=== PATIENT | male | born 1985 | race Two or more races ===

== ENCOUNTER 2016-12-26 11:33 | Emergency (ER) | payer OTHER ==
[2016-12-26] MEDS ORDERED: NS 1,000 ML IV ONE (11:38)
[2016-12-26 11:46] VITALS: RESP 16; TEMP 98.1
[2016-12-26 11:57] LABS: ABSOLUTE IMMATURE GRANULOCYTES 0.08 10^3/uL (0.00-0.10); ADD DIFF? NO; ADD MORPH? NO; ADD SCAN? NO; ATYPICAL LYMPHOCYTE FLAG 30 (0-99); FRAGMENT RBC FLAG 0 (0-99); HEMATOCRIT 50.5 % (40.0-51.0); HEMOGLOBIN 18.4 g/dL (13.7-17.5); LEFT SHIFT FLG 0 (0-99); LIPEMIA HEMOLYSIS FLAG 90 (0-99); MEAN CELL HEMOGLOBIN 30.6 pg (27.9-34.1); MEAN CELL HEMOGLOBIN CONCENTR. 36.4 g/dL (32.4-36.7); MEAN PLATELET VOLUME 10.5 fL (8.7-11.7); PLATELET CLUMPS FLAG 20 (0-99); PLATELET COUNT 244 10^3/uL (150-400); RED BLOOD CELL COUNT 6.01 10^6/uL (4.40-6.38); RED CELL DISTRIBUTION WIDTH 12.4 % (11.5-15.2)
[2016-12-26] MEDS ORDERED: IOPAMIDOL (ISOVUE-300) 100 ML BTL ONE (12:19)
--- NOTE | 2016-12-26 12:45 | EDPHY ---
HPI/HX/ROS/PE/MDM Narrative: CHIEF COMPLAINT: LTA, fall, back pain HPI: The patient is a [place]-speaking 31 y/o male arriving via EMS in a c- collar and complaining of low back pain as a Limited Trauma Activation after a 15-20ft fall on a construction site. Per EMS, the man said he was standing on a stepladder on the second story and fell to the ground after spinning in the air a couple times. He only complains of mild lower back pain. He denies striking his head, loss of consciousness, weakness, paresthesias, or any other injuries. He denies pertinent medical history. History obtained via quartz cutter. REVIEW OF SYSTEMS: Aside from elements discussed in the HPI, a comprehensive 10-point review of systems was reviewed and is negative. PMH: Denies SOCIAL HISTORY: [place]-speaking. Employed. Coworkers at bedside. PHYSICAL EXAM: General:Patient is alert, in no acute distress. ENT:Eyes are normal to inspection. ENT inspection normal. Neck: Normal inspection. Full range of motion. Respiratory:No respiratory distress. Breath sounds normal bilaterally. Cardiovascular: Regular rate and rhythm. Strong peripheral pulses. Normal cap refill. Abdomen:The abdomen is nontender to palpation. There are no peritoneal signs. Back: 4" diameter abrasion to mid back, smaller 1.5" abrasion superior to this, no midline pain Skin: Normal color. No rash. Warm and dry. Extremities: Normal appearance. Full range of motion. Neuro: Oriented x3. Normal motor function. Normal sensory function. ED Course: 1133: Met EMS upon arrival and took report. This is a 31 y/o male who fell approximately 15-20ft at a construction site and now complains of lower back pain. He has two abrasions on the left side of his mid back. He denies midline tenderness and has a normal neurovascular exam. No other visible trauma. C- spine cleared clinically and c-collar removed by myself. Plan for IV, basic labs , chest and abdomen CTs. 1L IV NS administered. 1326: CT shows T12-L1 transverse process fracture. No further interventions required at this time. I discussed findings with the patient and his coworkers via quartz cutter. He will be discharged home with standard transverse fracture care instructions and referral to neurosurgery. Return precautions given. He agrees with plan for follow up. - Data Points Imaging Results: Imaging Impressions Abdomen CT 12/26/16 11:38 Impression: Minimally displaced right T12 and L1 transverse process fractures. Findings discussed with Dr. Alonzo Guillen, on December 26, 2016 at [address] 12/26/16 13:07 Impression: Minimally displaced right T12 and L1 transverse process fractures. Findings discussed with Dr. Alonzo Guillen, on December 26, 2016 at 1325 hours. Imaging: Discussed imaging studies w/ faculty i on call medical assistant Radiologist, I viewed and interpreted images myself Laboratory Results: Laboratory Results 12/26/16 11:45 12/26/16 12/26/16 11:45 11:41 WBC 8.24 10^3/uL 10^3/uL (3.80-9.50) RBC 6.01 10^6/uL 10^6/uL (4.40-6.38) Hgb 18.4 g/dL H g/dL (13.7-17.5) POC Hgb 18.0 gm/dL H gm/dL (13.7-17.5) Hct 50.5 % % (40.0-51.0) POC Hct 53 % H % (40-51) MCV 84.0 fL fL (81.5-99.8) MCH 30.6 pg pg (27.9-34.1) MCHC 36.4 g/dL g/dL (32.4-36.7) RDW 12.4 % % (11.5-15.2) Plt Count 244 10^3/uL 10^3/uL (150-400) MPV 10.5 fL fL (8.7-11.7) Neut % (Auto) 56.7 % % (39.3-74.2) Lymph % (Auto) 33.5 % % (15.0-45.0) [place] % (Auto) 5.3 % % (4.5-13.0) Eos % (Auto) 3.0 % % (0.6-7.6) Baso % (Auto) 0.5 % % (0.3-1.7) Nucleat RBC Rel Count 0.0 % % (0.0-0.2) Absolute Neuts (auto) 4.67 10^3/uL 10^3/uL (1.70-6.50) Absolute Lymphs (auto) 2.76 10^3/uL 10^3/uL (1.00-3.00) Absolute Monos (auto) 0.44 10^3/uL 10^3/uL (0.30-0.80) Absolute Eos (auto) 0.25 10^3/uL 10^3/uL (0.03-0.40) Absolute Basos (auto) 0.04 10^3/uL 10^3/uL (0.02-0.10) Absolute Nucleated RBC 0.00 10^3/uL 10^3/uL (0-0.01) Immature Gran % 1.0 % % (0.0-1.1) Immature Gran # 0.08 10^3/uL 10^3/uL (0.00-0.10) POC Sodium 143 mEq/L mEq/L (134-144) POC Potassium 3.1 mEq/L L mEq/L (3.3-5.0) POC Chloride 104 mEq/L mEq/L (97-110) POC BUN 13 mg/dL mg/dL (7-23) POC Creatinine 0.9 mg/dL mg/dL (0.7-1.3) POC Glucose 113 mg/dL H mg/dL (70-100) Medications Given: Discontinued Medications Sodium Chloride (Ns) 1,000 mls @ 0 mls/hr IV EDNOW ONE; Wide Open PRN Reason: Protocol Stop: 12/26/16 11:39 Last Admin: 12/26/16 12:18 Dose: 1,000 mls Point of Care Test Results: 12/26/16 11:41 POC Sodium 143 POC Potassium 3.1 L POC Chloride 104 POC BUN 13 POC Creatinine 0.9 POC Glucose 113 H General Initial Vital Signs: Initial Vital Signs Temperature (C) 36.7 C 12/26/16 11:43 Heart Rate 82 12/26/16 11:43 Respiratory Rate 16 12/26/16 11:43 Blood Pressure 165/82 H 12/26/16 11:43 O2 Sat (%) 96 12/26/16 11:43 O2 Delivery Mode Room Air Allergies/Adverse Reactions: No Known Allergies Allergy (Unverified 12/26/16 12:05) Departure - Departure Disposition: Home, Routine, Self-Care Clinical Impression: Abrasion, T12-L1 Fall Qualifiers: Encounter type: initial encounter Qualified Code(s): W19.XXXA - Unspecified fall, initial encounter Back pain Qualifiers: Back pain location: low back pain Chronicity: acute Back pain laterality: right Sciatica presence: without sciatica Qualified Code(s): M54.5 - Low back pain Lumbar transverse process fracture Qualifiers: Encounter type: initial encounter Fracture type: closed Qualified Code(s): S32.009A - Unspecified fracture of unspecified lumbar vertebra, initial encounter for closed fracture Condition: Good Instructions: Thoracolumbar Fracture (ED), Abrasion (ED) Additional Instructions: 1. Take ibuprofen as directed on the packaging as needed for pain over the next few days. You can also apply ice to sore areas. 2. Use Percocet as prescribed as needed for severe pain. Do not drive while using this medication as it will make you drowsy. 3. Follow up with neurosurgery in the next week. 4. Return to the ED for severe pain, weakness, numbness, vision changes, or other worsening of condition. 5. Follow up with the workman's comp clinic as directed by your employer to be cleared for work. Referrals: [facility],. [Clinic] - As per Instructions Thong Brock MD [Medical Doctor] - As per Instructions Print Language: [place] Report Scribed for: Alonzo Guillen Report Scribed by: Elizabeth Amin Date of Report: 12/26/16 Time of Report: 11:51 Physician Review and Approval Statement: Portions of this note were transcribed by an ED scribe. I personally performed the history, physical exam, and medical decision making; and confirm the accuracy of the information in the transcribed note.
[2016-12-26 13:46] VITALS: BP 133/91; PULSE 96; O2SAT 96
== END 2016-12-26 14:25 | disposition home or self-care (01) ==
DX: S32.018A Other fracture of first lumbar vertebra, initial encounter for closed fracture (principal); S22.088A Other fracture of T11-T12 vertebra, initial encounter for closed fracture; S20.412A Abrasion of left back wall of thorax, initial encounter; E86.9 Volume depletion, unspecified; W17.89XA Other fall from one level to another, initial encounter
CPT/HCPCS: 82947-QW; Q9967